=== PATIENT | female | born 1995 | race Caucasian/White ===

== ENCOUNTER 2020-02-08 19:33 | Emergency (ER) | payer MEDICAID ==
[~2020-02-08] VITALS: Ht 157.5 cm; Wt 92.5 kg
[2020-02-08 19:39] VITALS: BP 131/91
--- NOTE | 2020-02-08 19:41 | NUR ---
AMBULATED TO LOBBY WITH STEADY GAIT
--- NOTE | 2020-02-08 19:57 | NUR ---
Pt ambulated to bed 11.
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
[2020-02-08] MEDS ORDERED: ACETAMINOPHEN EXTRA STRENGTH 500 MG TAB PO ONE (20:25)
[2020-02-08] MEDS ORDERED: IBUPROFEN 400 MG TAB PO ONE (20:25)
--- NOTE | 2020-02-08 21:55 | NUR ---
pt returned from radiology
--- NOTE | 2020-02-08 23:41 | NUR ---
PT RESTING IN BED, MOTHER AT BEDSIDE. PT STATES SHE HAS HEADACE IN FRONTAL REGION AND OCCIPATAL REGION, STATES SHE WANTS SOMETHING FOR PAIN, DR LANG NOTIFIED
[2020-02-08] MEDS ORDERED: IBUPROFEN 600 MG TAB PO ONE (23:45)
[2020-02-08 23:57] VITALS: BP 102/59
--- NOTE | 2020-02-08 23:57 | NUR ---
Patient discharged with v/s stable. She states pain reduced to a tollerable 3/10. Written and verbal after care instructions given and explained. Patient alert, oriented and verbalized understanding of instructions. Ambulatory with steady gait. All questions addressed prior to discharge. ID band removed. Patient advised to follow up with PMD. Rx of Ibuprofen given. Patient educated on indication of medication including possible reaction and side effects. Opportunity to ask questions provided and answered.
== END 2020-02-08 23:57 | disposition home or self-care (01) ==
LOC: MED 19:33
DX: M25.511 Pain in right shoulder (principal); M25.512 Pain in left shoulder; M25.551 Pain in right hip; M25.552 Pain in left hip; V89.2XXA Person injured in unspecified motor-vehicle accident, traffic, initial encounter; Y93.89 Activity, other specified; Y92.89 Other specified places as the place of occurrence of the external cause; Y99.8 Other external cause status
CPT/HCPCS: 71045; 72125; 72170; 73030; 81025; 99284; Q0092